=== PATIENT | male | born 1980 | race African-American/Black ===

== ENCOUNTER 2020-10-01 08:11 | Emergency (ER) | payer MEDICAID ==
[~2020-10-01] VITALS: Ht 167.6 cm; Wt 90.7 kg
[2020-10-01 08:26] VITALS: BP 124/87
[2020-10-01] MEDS ORDERED: KETOROLAC TROMETH 60MG/2ML VIAL IM ONE (08:45)
[2020-10-01 09:01] LABS: Urine Bacteria NONE SEEN /hpf (None Seen); Urine Blood Negative /uL (Negative); Urine Mucus FEW (None Seen); Urine WBC 1 /hpf (0 - 3)
[2020-10-01 09:02] LABS: Basophils # (auto) 0.1 10 ^3/uL (0-0.2); Basophils % (auto) 1.2 % (0.0-2.0); Eosinophils # (auto) 0.1 10 ^3/uL (0-0.8); Eosinophils % (auto) 0.8 % (0.0-7.0); Hematocrit 48.5 % (41.0-53.0); Lymphocytes # (auto) 2.6 10 ^3/uL (0.4-5.4); Lymphocytes % (auto) 30.6 % (10.0-50.0); Mean Corpuscular Hemoglobin 29.7 pg (28.0-32.0); Mean Corpuscular Volume 89.9 fL (80.0-100.0); Monocytes # (auto) 0.5 10 ^3/uL (0-1.3); Monocytes % (auto) 6.4 % (0.0-12.0); Neutrophils # (auto) 5.2 10 ^3/uL (1.6-8.6); Nucleated Red Blood Cells % 0.1 %; Platelet Count (auto) 344 10^3/uL (140-450); Red Cell Distribution Width 14.4 % (11.8-14.3); White Blood Cell 8.5 10^3/uL (4.4-10.8)
[2020-10-01 09:14] LABS: Amphetamine Screen, Urine NEGATIVE (NEGATIVE); Barbiturate Scree,Urine NEGATIVE (NEGATIVE); Benzodiazephine Screen, Urine NEGATIVE (NEGATIVE); Cannabinoid Screen, Urine NEGATIVE (NEGATIVE); Cocaine Screen, Urine NEGATIVE (NEGATIVE); Opiate Scree,Urine NEGATIVE (NEGATIVE); Phencyclidine Screen, Urine NEGATIVE (NEGATIVE)
[2020-10-01 09:28] LABS: Albumin 3.5 g/dL (3.4-5.0); BUN/Creatinine Ratio 9.4; Calcium 8.8 mg/dL (8.5-10.1); Potassium 3.7 mmol/L (3.5-5.1)
[2020-10-01 09:32] LABS: Bilirubin, Total 0.3 mg/dL (0.2-1.0)
== END 2020-10-01 09:44 | disposition home or self-care (01) ==
LOC: ER 08:11
DX: K42.9 Umbilical hernia without obstruction or gangrene (principal); K59.00 Constipation, unspecified
CPT/HCPCS: 36415; 74176; 80053; 80307; 81001; 83690; 85025; 96372; 99284; J1885

== ENCOUNTER 2020-12-12 12:52 | Emergency (ER) | payer MEDICAID ==
[~2020-12-12] VITALS: Ht 167.6 cm; Wt 90.7 kg
[2020-12-12 13:42] VITALS: BP 130/79
== END 2020-12-12 16:01 | disposition home or self-care (01) ==
LOC: ER 12:52
DX: R05 Cough (principal); Z20.822 Contact with and (suspected) exposure to COVID-19
CPT/HCPCS: 36415; 71045; 87426; 99284; C9803; U0003

== ENCOUNTER 2021-09-13 15:10 | Emergency (ER) | payer MEDICAID ==
[~2021-09-13] VITALS: Ht 170.2 cm; Wt 63.5 kg
[2021-09-13] MEDS ORDERED: IBUPROFEN 800 MG TAB PO ONE (17:15)
[2021-09-13 18:55] VITALS: BP 139/95
== END 2021-09-13 17:56 | disposition home or self-care (01) ==
LOC: ER 15:10
DX: K02.9 Dental caries, unspecified (principal); F17.210 Nicotine dependence, cigarettes, uncomplicated

== ENCOUNTER 2023-11-28 10:04 | Emergency (ER) | payer MEDICAID ==
[~2023-11-28] VITALS: Ht 167.6 cm; Wt 88.6 kg
[2023-11-28 10:45] VITALS: BP 131/81; PULSE 79; RESP 15; TEMP 99; O2SAT 97
== END 2023-11-28 11:21 | disposition home or self-care (01) ==
LOC: ER 10:04
DX: S90.31XA Contusion of right foot, initial encounter (principal); S80.11XA Contusion of right lower leg, initial encounter; F17.210 Nicotine dependence, cigarettes, uncomplicated; W22.8XXA Striking against or struck by other objects, initial encounter; Y93.89 Activity, other specified; Y92.89 Other specified places as the place of occurrence of the external cause; Y99.8 Other external cause status
CPT/HCPCS: 73590; 73630